=== PATIENT | female | born 1955 | race Caucasian/White ===

== ENCOUNTER → 2019-10-17 12:51 | Outpatient (BNVA) | payer BC, SELFPAY | PROVIDERS: Referring Provider Nurse Practitioner; Visit Provider Podiatrist Foot & Ankle Surgery | DX: M79.672 Pain in left foot (principal); M21.612 Bunion of left foot | CPT/HCPCS: 73630 ==

== ENCOUNTER 2020-01-03 07:22 | Day surgery (SDC) | payer BC, SELFPAY ==
[2020-01-02 15:22] VITALS: BMI 39.9
--- NOTE | 2020-01-03 | SCC_ITS ---
Procedure Done: Wilfredo bunionectomy with Deepak osteotomy left foot CPT code 74453 6 seconds of fluoroscopic guidance, for a cumulative dose of 0.12 mGy, was provided to Dr. Pham by the radiology department. C-arm images of the foot were saved for the patient's permanent record. [facility]
[2020-01-03 07:51] VITALS: BP 137/72; PULSE 62; RESP 18; TEMP 35.9; O2SAT 96
[2020-01-03] MEDS: sodium chloride 0.9% 1,000 ML 30 ML IV (08:03)
--- NOTE | 2020-01-03 08:31 | ANES.PREANE2 ---
Pre-Anesthetic Assessment Pre-Anesthetic Assessment: Height/Weight: Height 1.63 m Weight 105.687 kg Temp Pulse Resp BP Pulse Ox 96.7 F L 62 18 137/72 96 01/03/20 07:51 01/03/20 07:51 01/03/20 07:51 01/03/20 07:51 01/03/20 07:51 Preop Diagnosis: Hallux abductovalgus deformity left. Hammertoe left second. Proposed Procedure: Operation Date: 01/03/20 09:15 Proposed Procedures p [place] [address](Not Applicable) - Jc Pham DPM s Deepak Osteotomy 48145(Not Applicable) - MOISÉS Wick Hammertoe Correction L 2nd [id number](Left) - Jc Pham DPM Last intake: Intake Last Liquid Date 01/03/20 Last Liquid Time 05:00 Last Solid Date 01/02/20 Last Solid Time 19:00 Social: Social History: Tobacco (quit 2003) and No alcohol Exam: Pre-Anes Outpt Exam: alert, oriented x 3, clear to auscultation bilaterally and regular rate & rhythm Airway: Submandibular: WNL Cervical ROM: WNL MP: 2 Dentition: Other (teeth ok) History/ROS: No significant history except as noted Pulmonary: Pulmonary: COPD, GILLIAM and Sleep apnea CV/HEM: CV/HEM: Arrythmia (palpitations) and HTN : : None reported Hepatic: Hepatic: None reported GI: GI: GERD (controlled) Metabolic: Metabolic: Morbid obesity Musc/skel: Musc/skel: Lower Back Pain and OA/DJD Neuropsych: Neuropsych: Anxiety and Depression Anesthetic Plan: ASA status: 3 Anesthesia: Anesthesia Evaluation, General and MAC Risk of > 500 ml blood loss (7ml/kg in children): No Meds/Allergies Current Medications: Current Medications Generic Name Dose Route Start Last Admin Trade Name Freq PRN Reason Stop Dose Admin Sodium Chloride 1,000 mls @ 30 ml s/hr 01/03/20 07:45 01/03/20 08:03 Sodium Chloride 0.9% IV 01/04/20 07:44 30 mls/hr .Q24H ARIES Administration PFSH Anesthesia PFSH: Medical History Back pain Hypertension Palpitations Surgical History History of bunionectomy of right great toe History of cholecystectomy Family History Denies family history of Diabetes CAD (coronary artery disease) Clotting disorder Dementia Hyperlipidemia Psychiatric illness Chronic kidney disease (CKD) Suicide Anesthesia complication Bleeding disorder Family history of premature coronary artery disease Lung disease Cancer Hypertension Stroke Social History Smoking and tobacco status: former smoker Second hand smoke exposure: No Alcohol intake: never Data Anesthesia Cardiac Studies: No Data to Display
[2020-01-03 10:47] VITALS: RESP 18; O2SAT 97
[2020-01-03] MEDS: fentaNYL 50 mcg/mL INJ 2mL IVP (10:47)
--- NOTE | 2020-01-03 11:21 | P.HPUD_ITS ---
Surgery/Procedure H&P Update DATE OF PROCEDURE: January 03, 2020 DATE H&P PERFORMED: 01/01/20 H&P UPDATE INFORMATION: I have reviewed H&P completed within last 30 days, I have examined patient prior to procedure, No changes to prior documentation and H&P is in [facility] EMR on date indicated PREOP DIAGNOSIS: Hallux abductovalgus deformity left. Hammertoe left second. PLANNED PROCEDURE: Operation Date: 01/03/20 09:15 Proposed Procedures p [place] [address](Not Applicable) - Jc Pham DPM s Deepak Osteotomy 11783(Not Applicable) - Jc Pham DPM s Hammertoe Correction L 2nd [id number](Left) - Jc Pham DPM
--- NOTE | 2020-01-03 11:21 | W.PM.OPSUD ---
Surgery/Procedure H&P Update DATE OF PROCEDURE: January 03, 2020 DATE H&P PERFORMED: 01/01/20 H&P UPDATE INFORMATION: I have reviewed H&P completed within last 30 days, I have examined patient prior to procedure, No changes to prior documentation and H&P is in [facility] EMR on date indicated PREOP DIAGNOSIS: Hallux abductovalgus deformity left. Hammertoe left second. PLANNED PROCEDURE: Operation Date: 01/03/20 09:15 Proposed Procedures p [place] [address](Not Applicable) - Jc Pham DPM s Deepak Osteotomy 65702(Not Applicable) - Jc Pham DPM s Hammertoe Correction L 2nd 610159(Left) - Jc Pham DPM
[2020-01-03 13:23] VITALS: BP 101/68; PULSE 63; RESP 18; TEMP 36.1; O2SAT 92
[2020-01-03] MEDS: oxyCODONE-APAP 10-325 mg Tablet 1 TAB PO (13:49)
[2020-01-03 13:50] VITALS: BP 111/61; PULSE 64; RESP 18; O2SAT 92
--- NOTE | 2020-01-06 19:43 | PM.OP ---
Operative Report Date of procedure: January 03, 2020 Pre-op Diagnosis: Hallux abductovalgus deformity left. Hammertoe left second. Post-op diagnosis: same Procedure Done: Wilfredo bunionectomy with Deepak osteotomy left foot CPT code 04021 Right second hammertoe repair CPT code 67209 Implants: [place] 28 3 mm headless screw. [place] 28 10 mm staple. TenoTac Specimens removed/disposition: None Pathology: none sent Surgeon: Jc Pham D.P.M. Track Layer Head: Juan Daniel Estimated blood loss: 5 mL Tourniquet time: See intraoperative documentation. IV fluids: None Urine output: None Complications: None Condition: stable Disposition: PACU Brief History: Patient is a pleasant 64-year-old female with persistent pain secondary to a bunion deformity and hammertoe of the second right foot. She is underwent conservative treatments consisting of strapping, padding, splinting, NSAIDs, activity modifications, supportive shoes and orthotics with minimal improvement. She has had a bunion performed by another provider on her right foot with excellent outcomes. She is wanting to proceed surgical intervention of her left bunion and hammertoe. Risks include pain, bleeding, numbness, infection, swelling, bruising, surgical site dehiscence, overcorrection of the deformities including flail toe, destabilized second metatarsal phalangeal joint, hallux varus deformity, delayed union, nonunion, malunion, hardware failure, hardware irritation, transfer pressure, damage to adjacent soft tissue structures, permanent numbness, need for further surgical intervention. No guarantees written or implied. Patient wishes to proceed. Procedure: Under mild sedation the patient was brought to the operating room and placed on the operating table in supine position. A timeout was performed. Anesthesia was then administered by the anesthesia service. Local anesthesia was injected by myself consisting of 30 cc of 0.5% Marcaine plain in a left Garcia block and second ray block fashion. A well-padded pneumatic tourniquet was applied to the left ankle. The left lower extremity was then scrubbed, prepped and draped utilizing normal aseptic technique. The left foot was then exanguinated with an Esmarch bandage and the tourniquet was inflated to 250 mmHg. Attention was directed to the dorsal medial aspect of the left first metatarsal phalangeal joint where a linear longitudinal incision was made medial and parallel to the extensor hallucis longus tendon. Distal was carried out through skin and subcutaneous tissue utilizing a combination of blunt sharp technique. Care was taken to retract and preserve neurovascular and tendinous structures. Bleeders were ligated and cauterized as necessary. A linear capsulotomy is performed noted to have capsular thickening and calcifications within the capsule medially this was debulked and sharply debrided. A dorsal medial eminence was appreciated of bony hypertrophy this was transected utilizing a sagittal saw followed by insertion of a K wire to act as a access guide followed by a chevron osteotomy with apex pointed distally utilizing a sagittal saw the head of the first metatarsal was trans-located laterally and impacted on the first metatarsal with excellent apposition noted of the arthrodesis site this was temporarily fixated with a 0.045 K wire. Next utilizing standard AO technique a [place] 28 3 mm headless screw which was partially threaded and cannulated was inserted across the osteotomy site from dorsal proximal to plantar distal with direct visualization utilized to make sure we did not violate the first metatarsal phalangeal joint or articular surface. Temporary fixation was removed excellent bony apposition and compression noted of the screw this was confirmed with intraoperative loading, visualization as well as fluoroscopy. Medial shelf was transected utilizing a sagittal saw and all rough edges smoothed. Incision site was flushed with saline solution. Incision was carried distally to perform a Deepak osteotomy utilizing a sagittal saw maintaining a lateral cortical hinge in the proximal metaphyseal diaphyseal juncture of the left hallux proximal phalanx the osteotomy site was reduced after a wedge was removed and passed from the operative field and fixated utilizing a 10 mm [place] 28 stapler with excellent bony apposition and compression noted. Hallux was in a rectus position staple did not violate the metatarsal phalangeal joint and this was confirmed with visualization as well as fluoroscopy. Incision site was flushed with copious amounts of sterile saline solution. Capsule was reapproximated utilizing 3-0 Vicryl. Subcutaneous tissue was reapproximated utilizing 4-0 Vicryl and skin was closed utilizing 5-0 Monocryl in a running intracuticular fashion. Attention was then directed to the left second toe where a small minimal incision was made approximately 5 mm in length at the metaphyseal region of the dorsal second proximal phalanx guidewire was inserted from dorsal to plantar perpendicular to the longitudinal axis of the proximal phalanx followed by a 2 cm incision plantarly at the left second toe. Dissection was carried down to the flexor tendons which were bifurcated, a TenoTac was inserted both dorsally and plantarly with excellent apposition the second toe was held in a rectus position on insertion while the TenoTac was positioned and secured per director marketing communications recommendations. Temporary fixation was removed and the second toe sat in a more rectus position this was much improved compared to the preoperative sagittal plane contracture that was reducible. Incision site was flushed with saline solution. Dorsal incision was closed with 4-0 nylon. Plantar incision closed with 3-0 Prolene. Second toe set in a more rectus position and implant position confirmed on fluoroscopy noted to be acceptable. Incision sites were dressed with Adaptic, sterile 4 x 4's, Kerlix and Monty wrap followed by application of cam boot. Tourniquet was deflated and a prompt hyperemic response was noted to the distal digits of the left foot. Prior to skin closure Exparel was utilized for postoperative analgesia. Patient was transferred to the PACU with vital signs stable and vascular status intact. Following a period of postoperative monitoring she will be discharged home may be heel touch weightbearing for transfers only as tolerated. She is to elevate her left foot while at rest. Was provided my cell phone number will contact me with any postoperative questions or concerns.
== END 2020-01-03 14:16 | disposition home or self-care (01) ==
PROVIDERS: PCP Family Medicine; Visit Provider Podiatrist Foot & Ankle Surgery
PROC: (CPT 28296; principal; 2020-01-03 09:15)
PROC: (CPT 28298; 2020-01-03 09:15)
PROC: (CPT 28285; 2020-01-03 09:15)
DX: M20.12 Hallux valgus (acquired), left foot (principal); M20.42 Other hammer toe(s) (acquired), left foot; J44.9 Chronic obstructive pulmonary disease, unspecified; G47.30 Sleep apnea, unspecified; I10 Essential (primary) hypertension; K21.9 Gastro-esophageal reflux disease without esophagitis; E66.01 Morbid (severe) obesity due to excess calories; Z68.41 Body mass index [BMI] 40.0-44.9, adult; M19.90 Unspecified osteoarthritis, unspecified site; Z87.891 Personal history of nicotine dependence
CPT/HCPCS: 28285; 28299; 12345; 76000; 96374; C1713; C9290; J0690; J2001; J2704; J3010; J3490; J7030

== ENCOUNTER → 2020-01-16 13:53 | Outpatient (BNVA) | payer BC, SELFPAY | PROVIDERS: PCP Family Medicine; Visit Provider Podiatrist Foot & Ankle Surgery | DX: Z98.890 Other specified postprocedural states (principal) | CPT/HCPCS: 73630 ==

== ENCOUNTER 2020-01-16 14:38 | Outpatient (CLI) | payer BC, SELFPAY | END 2020-01-16 14:39 | disposition home or self-care (01) | LOC: SPT 14:39 | PROVIDERS: PCP Family Medicine; Visit Provider Podiatrist Foot & Ankle Surgery | DX: Z47.89 Encounter for other orthopedic aftercare (principal) | CPT/HCPCS: 97760; L3100 ==

== ENCOUNTER → 2020-02-06 11:08 | Outpatient (BNVA) | payer BC, SELFPAY | PROVIDERS: PCP Family Medicine; Visit Provider Podiatrist Foot & Ankle Surgery | DX: Z48.89 Encounter for other specified surgical aftercare (principal); M20.42 Other hammer toe(s) (acquired), left foot; M21.612 Bunion of left foot; M25.872 Other specified joint disorders, left ankle and foot | CPT/HCPCS: 73630 ==